=== PATIENT | male | born 1975 | race Caucasian/White ===

== ENCOUNTER 2020-07-25 09:18 | Outpatient (REF) | payer OTHER, SELFPAY ==
[2020-07-25 11:37] LABS: Estimated Average Glucose 123 mg/dL; Hemoglobin A1c % 5.9 %
[2020-07-25 11:49] LABS: Alanine Aminotransferase 34 U/L (0-40); Albumin Level 4.3 g/dL (3.5-5.0); Alkaline Phosphatase 50 U/L (39-117); Anion Gap 11 (12-20); Aspartate Amino Transferase 21 U/L (5-37); Bilirubin Total 0.4 mg/dL (0.0-1.0); Blood Urea Nitrogen 14 mg/dL (9-16); Calcium 8.9 mg/dL (8.4-10.2); Carbon Dioxide 30 mmol/L (22-29); Chloride 103 mmol/L (96-108); Cholesterol 181 mg/dL; Estimated Glomerular Filt Rate > 60; Glucose Fasting 130 mg/dL (60-99); HDL Cholesterol 36 mg/dL; LDL Cholesterol Calculated 115 mg/dl; Potassium 5.1 mmol/l (3.3-5.1); Sodium 139 mmol/L (135-145); Total Protein 6.8 g/dL (6.5-8.0); Triglycerides 154 mg/dL
[2020-07-25 11:51] LABS: Creatinine Urine 118.63 mg/dL; Microalbum/Creatinine Ratio Ur 5.9 ug/mg cr
== END 2020-07-25 09:19 | disposition home or self-care (01) ==
LOC: HO.MANLDS 09:18
PROVIDERS: Visit Provider Physician Assistant
DX: E11.9 Type 2 diabetes mellitus without complications (principal); I10 Essential (primary) hypertension
CPT/HCPCS: 80053; 80061; 82043; 83036

== ENCOUNTER 2020-10-19 09:07 | Outpatient (REF) | payer OTHER, SELFPAY ==
[2020-10-19 12:03] LABS: Estimated Average Glucose 128 mg/dL; Hemoglobin A1c % 6.1 %
[2020-10-19 12:30] LABS: Alanine Aminotransferase 44 U/L (0-40); Albumin Level 4.2 g/dL (3.5-5.0); Alkaline Phosphatase 49 U/L (39-117); Anion Gap 12 (12-20); Aspartate Amino Transferase 26 U/L (5-37); Bilirubin Total 0.7 mg/dL (0.0-1.0); Blood Urea Nitrogen 18 mg/dL (9-16); Calcium 8.9 mg/dL (8.4-10.2); Carbon Dioxide 29 mmol/L (22-29); Chloride 103 mmol/L (96-108); Cholesterol 194 mg/dL; Estimated Glomerular Filt Rate > 60; Glucose Fasting 142 mg/dL (60-99); HDL Cholesterol 38 mg/dL; LDL Cholesterol Calculated 118 mg/dl; Potassium 4.5 mmol/L (3.3-5.1); Sodium 139 mmol/L (135-145); Total Protein 6.7 g/dL (6.5-8.0); Triglycerides 191 mg/dL
[2020-10-19 13:46] LABS: Creatinine Urine 125.85 mg/dL; Microalbum/Creatinine Ratio Ur 6.3 ug/mg cr
== END 2020-10-19 09:08 | disposition home or self-care (01) ==
LOC: HO.MANLR 09:07
PROVIDERS: PCP Internal Medicine; Visit Provider Physician Assistant
DX: E11.9 Type 2 diabetes mellitus without complications (principal)
CPT/HCPCS: 36415; 80053; 80061; 82043; 83036

== ENCOUNTER 2021-01-23 10:17 | Outpatient (REF) | payer OTHER, SELFPAY ==
[2021-01-23 13:14] LABS: Estimated Average Glucose 131 mg/dL; Hemoglobin A1c % 6.2 %
== END 2021-01-23 10:18 | disposition home or self-care (01) ==
LOC: HO.MANLDS 10:17
PROVIDERS: PCP Internal Medicine; Visit Provider Physician Assistant
DX: E11.9 Type 2 diabetes mellitus without complications (principal)
CPT/HCPCS: 36415; 83036

== ENCOUNTER 2021-05-07 09:14 | Outpatient (REF) | payer OTHER, SELFPAY ==
[2021-05-07 11:31] LABS: Estimated Average Glucose 131 mg/dL; Hemoglobin A1c % 6.2 %
== END 2021-05-07 09:15 | disposition home or self-care (01) ==
LOC: HO.MANLDS 09:14
PROVIDERS: PCP Physician Assistant; Visit Provider Physician Assistant
DX: E11.9 Type 2 diabetes mellitus without complications (principal)
CPT/HCPCS: 36415; 83036

== ENCOUNTER 2021-10-04 10:01 | Outpatient (REF) | payer OTHER, SELFPAY ==
[2021-10-04 11:28] LABS: Alanine Aminotransferase 53 U/L (0-40); Albumin Level 4.3 g/dL (3.5-5.0); Alkaline Phosphatase 52 U/L (39-117); Anion Gap 11 (12-20); Aspartate Amino Transferase 26 U/L (5-37); Bilirubin Total 0.6 mg/dL (0.0-1.0); Blood Urea Nitrogen 13 mg/dL (9-16); Calcium 9.8 mg/dL (8.4-10.2); Carbon Dioxide 29 mmol/L (22-29); Chloride 102 mmol/L (96-108); Cholesterol 196 mg/dL; Estimated Average Glucose 134 mg/dL; Estimated Glomerular Filt Rate > 60; Glucose Fasting 134 mg/dL (60-99); HDL Cholesterol 32 mg/dL; Hemoglobin A1c % 6.3 %; LDL Cholesterol Calculated 122 mg/dl; Potassium 4.7 mmol/L (3.3-5.1); Sodium 137 mmol/L (135-145); Total Protein 6.9 g/dL (6.5-8.0); Triglycerides 210 mg/dL
[2021-10-04 11:29] LABS: Creatinine Urine 130.65 mg/dL; Microalbum/Creatinine Ratio Ur 6.8 ug/mg cr
== END 2021-10-04 10:02 | disposition home or self-care (01) ==
LOC: HO.MANLDS 10:01
PROVIDERS: PCP Physician Assistant; Visit Provider Physician Assistant
DX: E11.9 Type 2 diabetes mellitus without complications (principal)
CPT/HCPCS: 36415; 80053; 80061; 82043; 83036

== ENCOUNTER 2022-02-26 10:10 | Outpatient (REF) | payer OTHER, SELFPAY ==
[2022-02-26 11:14] LABS: MANUAL DIFF FLAG NO
[2022-02-26 11:37] LABS: Estimated Average Glucose 126 mg/dL
[2022-02-26 11:39] LABS: Basophils Percent Auto 0.8 % (0-2); Eosinophils Absolute Auto 0.1 X10*3/uL (0.0-0.4); Eosinophils Percent Auto 2.6 % (0-4); Hemoglobin 14.9 g/dl (14.0-18.0); Imm Gran Abs Auto 0.02 X10*3/uL (0.00-0.03); Imm Gran Pct Auto 0.4 % (0.0-0.4); Lymphocytes Absolute Auto 2.1 X10*3/uL (1.2-4.9); Lymphocytes Percent Auto 38.7 % (20-40); Mean Corpuscular HGB Conc 33.9 g/dl (31.0-36.0); Mean Corpuscular Volume 94.4 fL (80.0-98.0); Mean Platelet Volume 9.8 fL (9.4-12.4); Monocytes Absolute Auto 0.4 X10*3/uL (0.1-1.2); Monocytes Percent Auto 7.9 % (2-11); Neutrophils Absolute Auto 2.6 x10*3/uL (2.0-8.3); Neutrophils Percent Auto 49.6 % (45-73); Platelet Count 268 X10*3/uL (160-400); Red Blood Count 4.66 X10*6/uL (4.60-5.80); Red Cell Distribution Width 12.1 % (11.0-16.0); White Blood Count 5.3 X10*3/uL (4.8-10.8)
[2022-02-26 12:12] LABS: Alanine Aminotransferase 43 U/L (0-40); Albumin Level 4.3 g/dL (3.5-5.0); Alkaline Phosphatase 53 U/L (39-117); Anion Gap 12 (12-20); Aspartate Amino Transferase 23 U/L (5-37); Bilirubin Total 0.6 mg/dL (0.0-1.0); Blood Urea Nitrogen 13 mg/dL (9-16); Carbon Dioxide 28 mmol/L (22-29); Chloride 106 mmol/L (96-108); Cholesterol 168 mg/dL; Estimated Glomerular Filt Rate > 60; Glucose Random 120 mg/dL (60-115); HDL Cholesterol 29 mg/dL; LDL Cholesterol Calculated 110 mg/dl; Sodium 141 mmol/L (135-145); Total Protein 6.8 g/dL (6.5-8.0); Triglycerides 146 mg/dL
== END 2022-02-26 10:11 | disposition home or self-care (01) ==
LOC: HO.MANLDS 10:10
PROVIDERS: Visit Provider Physician Assistant
DX: I10 Essential (primary) hypertension (principal)
CPT/HCPCS: 36415; 80053; 80061; 83036; 85025

== ENCOUNTER 2022-08-06 09:43 | Outpatient (REF) | payer OTHER, SELFPAY ==
[2022-08-06 11:11] LABS: MANUAL DIFF FLAG NO
[2022-08-06 11:24] LABS: Basophils Absolute Auto 0.1 X10*3/uL (0.0-0.2); Basophils Percent Auto 1.3 % (0-2); Eosinophils Absolute Auto 0.2 X10*3/uL (0.0-0.4); Eosinophils Percent Auto 3.9 % (0-4); Hematocrit 44.1 % (42.0-52.0); Hemoglobin 14.9 g/dl (14.0-18.0); Imm Gran Abs Auto 0.01 X10*3/uL (0.00-0.03); Imm Gran Pct Auto 0.2 % (0.0-0.4); Lymphocytes Absolute Auto 2.3 X10*3/uL (1.2-4.9); Lymphocytes Percent Auto 42.8 % (20-40); Mean Corpuscular HGB Conc 33.8 g/dl (31.0-36.0); Mean Corpuscular Hemoglobin 31.8 pg (27.0-33.0); Mean Corpuscular Volume 94.2 fL (80.0-98.0); Mean Platelet Volume 9.5 fL (9.4-12.4); Monocytes Absolute Auto 0.4 X10*3/uL (0.1-1.2); Monocytes Percent Auto 8.1 % (2-11); Neutrophils Absolute Auto 2.3 x10*3/uL (2.0-8.3); Neutrophils Percent Auto 43.7 % (45-73); Platelet Count 243 X10*3/uL (160-400); Red Blood Count 4.68 X10*6/uL (4.60-5.80); Red Cell Distribution Width 12.3 % (11.0-16.0); White Blood Count 5.3 X10*3/uL (4.8-10.8)
[2022-08-06 11:33] LABS: Estimated Average Glucose 137 mg/dL; Hemoglobin A1c % 6.4 %
[2022-08-06 11:52] LABS: Alanine Aminotransferase 50 U/L (0-40); Albumin Level 4.2 g/dL (3.5-5.0); Alkaline Phosphatase 48 U/L (39-117); Anion Gap 13 (12-20); Aspartate Amino Transferase 28 U/L (5-37); Bilirubin Total 0.5 mg/dL (0.0-1.0); Blood Urea Nitrogen 13 mg/dL (9-16); Calcium 9.1 mg/dL (8.4-10.2); Carbon Dioxide 26 mmol/L (22-29); Chloride 105 mmol/L (96-108); Cholesterol 208 mg/dL; Estimated Glomerular Filt Rate > 60; Glucose Random 147 mg/dL (60-115); HDL Cholesterol 36 mg/dL; LDL Cholesterol Calculated 129 mg/dl; Potassium 4.5 mmol/L (3.3-5.1); Sodium 139 mmol/L (135-145); Total Protein 6.5 g/dL (6.5-8.0); Triglycerides 215 mg/dL
== END 2022-08-06 09:44 | disposition home or self-care (01) ==
LOC: HO.MANLDS 09:43
PROVIDERS: Visit Provider Physician Assistant
DX: I10 Essential (primary) hypertension (principal)
CPT/HCPCS: 36415; 80053; 80061; 83036; 85025

== ENCOUNTER 2023-05-08 09:36 | Outpatient (REF) | payer OTHER, SELFPAY | END 2023-05-08 09:37 | disposition home or self-care (01) | LOC: HO.MANLDS 09:36 | PROVIDERS: Visit Provider Physician Assistant | DX: E11.9 Type 2 diabetes mellitus without complications (principal) | CPT/HCPCS: 36415; 80061; 83036 ==

== ENCOUNTER 2024-05-24 10:24 | Outpatient (REF) | payer OTHER, SELFPAY ==
[2024-05-24 13:11] LABS: MANUAL DIFF FLAG NO
[2024-05-24 13:38] LABS: Basophils Absolute Auto 0.1 X10*3/uL (0.0-0.2); Basophils Percent Auto 1.2 % (0-2); Eosinophils Absolute Auto 0.2 X10*3/uL (0.0-0.4); Eosinophils Percent Auto 3.3 % (0-4); Hematocrit 43.2 % (42.0-52.0); Hemoglobin 14.9 g/dl (14.0-18.0); Imm Gran Abs Auto 0.02 X10*3/uL (0.00-0.03); Imm Gran Pct Auto 0.4 % (0.0-0.4); Lymphocytes Absolute Auto 1.9 X10*3/uL (1.2-4.9); Lymphocytes Percent Auto 38.2 % (20-40); Mean Corpuscular HGB Conc 34.5 g/dl (31.0-36.0); Mean Corpuscular Hemoglobin 32.5 pg (27.0-33.0); Mean Corpuscular Volume 94.1 fL (80.0-98.0); Mean Platelet Volume 9.5 fL (9.4-12.4); Monocytes Absolute Auto 0.4 X10*3/uL (0.1-1.2); Monocytes Percent Auto 8.9 % (2-11); Neutrophils Absolute Auto 2.4 x10*3/uL (2.0-8.3); Platelet Count 245 X10*3/uL (160-400); Red Blood Count 4.59 X10*6/uL (4.60-5.80); White Blood Count 4.9 X10*3/uL (4.8-10.8)
[2024-05-24 13:59] LABS: Estimated Average Glucose 128 mg/dL; Hemoglobin A1C 187.1853 umol/L; Hemoglobin A1c % 6.1 % (<6.0); Total Hemoglobin (HGBA1C) 4367.5916 umol/L
== END 2024-05-24 10:25 | disposition home or self-care (01) ==
LOC: HO.MANLDS 10:24
PROVIDERS: Visit Provider Physician Assistant
DX: E11.9 Type 2 diabetes mellitus without complications (principal)
CPT/HCPCS: 36415; 83036; 85025

== ENCOUNTER 2025-04-24 09:42 | Outpatient (REF) | payer OTHER, SELFPAY ==
--- OUTSIDE RECORDS SUMMARY | 2025-04-24 11:30 | XMS_ITS | Encounter Summary ---
Author Organization [facility] Address [address] [address] Phone Care Team Providers Care Blender Helper Name Role Phone Yair Monreal DO Unavailable Fritz Avalos DO Unavailable Keya Chaidez PLATFORM SUPERVISOR Unavailable [phone] Daily Matamoros PA-C Unavailable [phone] Robyn Godoy MD Unavailable [phone] Yashira Snow PLATFORM SUPERVISOR Unavailable Yair Monreal DO Primary Care Provider Reason for Referral * MRI/CAT Scan - Closed Specialty Diagnoses / Procedures Referred By Contac t Referred To Contact Radiology Diagnoses Lumbosacral plexopathy Procedures MRI Pelvis (GI/) Omega Oneal MD Phone: tel: fax: [email or web address] Referral ID Status Reason Start Date Expiration Date Visits Re quested Visits Authorized [id number] Closed 05/26/2019 07/25/2019 1 1 Encounter Details Date Type Department Care Team (Latest Contact Info) Description 05/26/2019 Transcribe Orders [facility] Department [address] [place] [address] Omega Oneal MD [address] [place] [address], [address] [place] [address] [email or web address] Lumbosacral plexopathy (Primary Dx) Social History Tobacco Use Types Packs/Day Years Used Date Smoking Tobacco: Never Smokeless Tobacco: Never Alcohol Use Standard Drinks/Week Comments Yes 0 (1 standard drink = 0.6 oz pur e alcohol) rare Sex and Gender Information Value Date Recorded Sex Assigned at Not on file Legal Sex Male 9:31 PM EDT Gender Identity Not on file Sexual Orientation Not on file documented as of this encounter Plan of Treatment Not on file documented as of this encounter Results * MRI PELVIS WITH AND WITHOUT CONTRAST (06/16/2019 10:22 AM EST) Anatomical Region Laterality Modality Pelvis Magnetic Resonan ce 06/16/2019 10:5 1 AM EST Impressions 06/16/2019 10:59 AM EST No sacral, sacral plexus mass or pelvic mass identified to clearly account for the left lower extremity muscle loss. [id number] Narrative 06/16/2019 10:59 AM EST HISTORY: Unexplained lumbosacral plexus apathy. Muscle wasting left lower extremity. COMPARISON: No prior imaging of the region. TECHNIQUE: Axial T1, T1 fat sat, and STIR, and coronal T1, T1 fat sat and T2 fat sat sequences obtained. Postcontrast axial and coronal T1 fat-saturated sequences then obtained. Study is significantly limited due to body habitus and inhomogeneous fat saturation as well as respiratory artifact. FINDINGS: No sacral or pelvic masses are identified. No free fluid or fluid collections. No stones are clearly worrisome enhancement are seen. Lumbar spine was previously evaluated on an outside dedicated MRI study. No worrisome marrow signal changes appreciated in the [id number]. Incidental cyst suggested in the medial lip of the left kidney. Procedure Note Nan Evans MD - 06/16/2019 HISTORY: Unexplained lumbosacral plexus apathy. Muscle wasting left lowerextremity. COMPARISON: No prior imaging of the region. TECHNIQUE: Axial T1, T1 fat sat, and STIR, and coronal T1, T1 fat sat andT2 fat sat sequences obtained. Postcontrast axial and coronal [id number] sequences then obtained. Study is significantly limited dueto body habitus and inhomogeneous fat saturation as well as respiratoryartifact. FINDINGS: No sacral or pelvic masses are identified. No free fluid or fluidcollections. No stones are clearly worrisome enhancement are seen. Lumbarspine was previously evaluated on an outside dedicated MRI study. Noworrisome marrow signal changes appreciated in the [id number].Incidental cyst suggested in the medial lip of the left kidney. IMPRESSION: No sacral, sacral plexus mass or pelvic mass identified to clearly accountfor the left lower extremity muscle loss. [id number] Omega Oneal MD IMG MR PELVIS Final Result documented in this encounter Visit Diagnoses Diagnosis Lumbosacral plexopathy- Primary Lumbosacral plexus lesions Lumbosacral plexopathy Lumbosacral plexus lesions documented in this encounter Care Teams Blender Helper Relationship Specialty Start Date End Date Yair Monreal DO PCP - General Internal Medicine 06/02/17 Yair Monreal DO Historical LMR Provider 05/18/17 Fritz Avalos DO [address] [place] [address] Orth[facility] Medicine, [place] [address] Historical LMR Provider 05/18/17 Keya Chaidez NP [address] [place] [address] [email or web address] Historical LMR Provider 05/18/17 2 Daily Matamoros PA-C [address] [place] [address] [place] [address] [email or web address] Historical LMR Provider 05/18/17 08/10/21 Robyn Godoy MD [address] [place] [address] [facility], [place] [address] [email or web address] Historical LMR Provider 05/18/17 Yashira Snow NP [address] [place] [address] Historical LMR Provider 05/18/17 2 documented as of this encounter Additional Source Comments The information contained in this document represents components of the legal health record. It is not the complete legal health record.[facility]
--- OUTSIDE RECORDS SUMMARY | 2025-04-24 11:30 | XMS_ITS | Clinical Summary ---
Author Organization [facility] Address [address] [address] Phone Care Team Providers Care Health Promotion Educator Name Role Phone Yair Monreal DO Unavailable Fritz Avalos DO Unavailable [phone] Robyn Godoy MD Unavailable [phone] Yair Monreal DO Primary Care Provider [phone] Allergies Active Allergy Reactions Criticality Noted Date Comments Gudreep Inhibitors Cough Cefadroxil GI Upset,Anaphylaxis High Medications aspirin 81 MG EC tablet 1 tablet daily Activ e losartan (COZAAR) 50 MG tablet Take 50 mg by mouth daily. Active metFORMIN (GLUCOPHAGE) 500 MG tablet Take 1 tablet twice a day by oral route. Active omeprazole (PRILOSEC) 20 MG capsule TAKE ONE CAPSULE BY MOUTH TWICE A DAY USE WHILE ON DICLOFENAC Active blood-glucose meter kit use as directed Acti ve blood sugar diagnostic (FREESTYLE LITE STRIPS [facility]) use 1 per day with meter Active multivit with minerals/lutein (MULTIVITAMIN 50 PLUS ORAL) multivitamin Act deisy EPINEPHrine 0.3 mg/0.3 mL auto-injector Inject 0.3 mL (0.3 mg total) into the muscle as needed for anaphylaxis. 2 each 2 Active albuterol 90 mcg/actuation inhaler Inhale 2 puffs into the lungs every 6 (six) hours as needed. 8.5 g 2 Active Active Problems Problem Noted Date Diagnosed Date Cervical radicular pain 12/02/2021 Allergic reaction 12/02/2021 Insomnia 11/13/2021 Degeneration of lumbar intervertebral disc 10/09 Type 2 diabetes mellitus 01/12/2018 Assessment & Plan (12/02/2021 5:49 PM EDT): Started on insulin sliding scale. Holding metformin. Monitor blood sugars as steroids have been administered. Essential hypertension 01/11/2018 Assessment & Plan (12/02/2021 5:49 PM EDT): Holding antihypertensive medications at this time. Gastroesophageal reflux disease 01/11/2018 Assessment & Plan (12/02/2021 5:49 PM EDT): Continue with omeprazole daily. Obesity 01/08/2018 Resolved Problems Problem Noted Date Diagnosed Date Resolved Date Anaphylactic shock 12/02/2021 2 Assessment & Plan (12/02/2021 6:01 PM EDT): Will admit to the critical care unit. Epinephrine drip initiated. Will monitor closely and if not weaning off of the epinephrine drip within the first hour or so, may need more central IV access. Patient received a dose of methylprednisolone in the emergency department. Will not continue steroids for now. We will continue H1 and H2 joni scheduled. We will continue cardiac monitoring. We will monitor hemodynamics. If remaining hypotensive, will consider arterial line. I have asked for tryptase to be sent in the emergency department. We will repeat labs in the morning. Differential diagnosis includes mast cell activation syndrome for cholinergic urticaria/stress-induced urticaria. Left shoulder pain 03/15/2018 2 Immunizations Immunization Administration Dates Next Due COVID-19 (Pre-05/25) Moderna Vaccine, mRNA, PF 09/10/2021,09/11/2020,08/13/2020 INFLUENZA, SPLIT VIRUS, TRIVALENT PF 05/16/2016 Family History Medical History Relation Comments Diabetes Father Gout Father Hypertension Father Relation Status Comments Father Social History Tobacco Use Types Packs/Day Years Used Date Smoking Tobacco: Never Smokeless Tobacco: Never Alcohol Use Standard Drinks/Week Comments Yes 0 (1 standard drink = 0.6 oz pur e alcohol) rare Education Answer Date Recorded Are you interested in more education? Not on oralia e 11/28/2022 Are you concerned about learning? Not on file 11/28/2022 No 11/28/2022 No 11/28/2022 Digital Access Answer Date Recorded No 12/26/2022 No 12/26/2022 Reliable internet access at home? Not on file 12/26/2022 Device with a working camera? Not on file Sex and Gender Information Value Date Recorded Sex Assigned at Not on file Legal Sex Male 9:31 PM EDT Gender Identity Not on file Sexual Orientation Not on file Last Filed Vital Signs Vital Sign Reading Time Taken Comments Blood Pressure 130/87 01/17/2022 12:12 PM EDT Pulse 82 01/17/2022 12:12 PM EDT Temperature 37.3 C (99.2 F) 01/17/2022 12:12 PM EDT Respiratory Rate 16 01/17/2022 12:12 PM EDT Oxygen Saturation 98% 01/17/2022 12:12 PM EDT Inhaled Oxygen Concentration - - Weight 131.1 kg (289 lb) 01/17/2022 12:12 PM EDT per pt Height 188 cm (6' 2 ) 12/02/2021 1:01 PM EDT Body Mass Index 37.11 12/02/2021 1:01 PM EDT Plan of Treatment Health Maintenance Due Date Last Done Comments Adult Td,Tdap Booster 1973 BLOOD PRESSURE 1973 HEMOGLOBIN A1C 1973 DEPRESSION SCREENING 1985 HEPATITIS C SCREENING 1991 HIV ONE-TIME SCREENING (18-6 5 YEARS) 1991 PNEUMOCOCCAL VACCINES (50+ years) (1 of 2 - PCV) 1992 COLOGUARD 2018 COLONOSCOPY 2018 COLORECTAL CANCER SCREENING 2018 FIT TEST 2018 FOBT 2018 SIGMOIDOSCOPY 2018 VIRTUAL COLONOSCOPY 2018 DIABETIC EYE EXAM 12/02/2021 CREATININE LEVEL 12/03/2022 12/03/2021, 12/02/2021 POTASSIUM LEVEL 12/03/2022 12/03/2021, 12/02/2021 ZOSTER VACCINES (1 of 2) 2023 INFLUENZA VACCINE (#1) 2025 05/16/2016 COVID-19 VACCINE (2024-2 6 season) 2025 09/10/2021, 09/11/2020, 08/13/2020 LIPID PANEL 04/12/2025 04/12/2024, 12/19/2010 SMOKING STATUS SCREENING (On ce After 26 Yrs) Completed 01/17/2022 HEPATITIS A VACCINES Aged Out No long er eligible based on patient's age to complete this topic HIB VACCINES Aged Out No longer eligi ble based on patient's age to complete this topic MENINGOCOCCAL VACCINES (ACWY) Aged Out No longer eligible based on patient's age to complete this topic MENINGOCOCCAL VACCINES (B) Aged Out N o longer eligible based on patient's age to complete this topic Medical Devices Not on file Procedures Procedure Name Priority Date/Time Associated Diagnosis Comments LIPID PANEL Routine 04/12/2024 11:09 AM EDT Pure hypercholesterolemia BASIC METABOLIC PANEL Routine 12/03/2021 5:12 AM EDT from Last 3 Months or Most Recently Relevant to Health Maintenance Results * (ABNORMAL) Lipid panel (04/12/2024 11:09 AM EDT) HDL 32 mg/dL [facility] Comment: Interpretation <40 mg/dL: Low HDL cholesterol (major risk factor for CHD) Greater than or equal to 60 mg/dL: High HDL cholesterol ( negative risk factor for CHD) HDL - cholesterol is affected by a number of factors, e.g. smoking, excerise, hormones, sex and age. CHOLESTEROL 181 0 - 240 mg/dL [facility] TRIGLYCERIDES 216(H) 30 - 160 mg/dL [facility] LDL 106 50 - 129 mg/dL [facility] Comment: LDL levels in terms of risk for coronary heart disease: <100 mg/dL: Optimal 100-129 mg/dL: Near or above optimal 130-159 mg/dL: Borderline high 160-189 mg/dL: High >190 mg/dL: Very High CARDIAC RISK RATIO 5.7(H) 3.4 - 5.0 C [facility] Blood 04/12/2024 11:0 9 AM EDT 04/12/2024 11:12 AM EDT us Anabell CRAWFORD LAB BLOOD ORDERABLES Final Result Performing Organization Address [facility] Co de Phone Number [address] [address] * (ABNORMAL) Basic metabolic panel (12/03/2021 5:12 AM EDT) SODIUM 140 133 - 146 mmol/L [facility] CHLORIDE 107 96 - 108 mmol/L [facility] POTASSIUM 4.7 3.3 - 5.1 mmol/L [facility] CO2 21 21 - 35 mmol/L [facility] BUN 17 6 - 19 mg/dL [facility] CREATININE 0.80 0.5 - 1.5 mg/dL [facility] GLUCOSE 207(H) 70 - 99 mg/dL [facility] CALCIUM 8.9 8.4 - 10.3 mg/dL [facility] EGFR 109 >59 mL/min/1.7 3m2 [facility] Comment:Estimated glomerular filtration rate calculated using the CKD-EPI refit equation. ANION GAP 17 10 - 20 mmol/L [facility] Blood 12/03/2021 5:12 AM EDT 12/03/2021 5:29 AM EDT us Devaugnh Guy PA-C, MS LAB BLOOD ORDERABLES Fi nal Result Performing Organization Address City/[facility]/ZIP Co de Phone Number [address] [address] from Last 3 Months or Most Recently Relevant to Health Maintenance Insurance [facility] HMO [id number] [place] [address] [facility]MO [facility] [id number] [place] [id number] [place] [address] [facility] Advance Directives For more information, please contact: [phone] (9AM - 5PM [place], Thursday-Thursday) Documents on File Type Date Recorded Patient Pantry Chef Expl anation Healthcare Proxy 12/04/2021 10:38 AM * Full Code (Latest Code Status on File) Date Activated Date Inactivated Comments 12/02/2021 6:43 PM Question Answer Comments Code Status Confirmed With: Patient Care Teams Health Promotion Educator Relationship Specialty Start Date End Date Yair Monreal DO PCP - General Internal Medicine 06/02/17 Yair Monreal DO Historical LMR Provider 05/18/17 Fritz Avalos DO 4 [facility]ics & Sports Medicine, [place] [address] Historical LMR Provider 05/18/17 Robyn Godoy MD [address] [place] [address] Orthopedics & Sports Medicine, [place] [address] Historical LMR Provider 05/18/17 Additional Source Comments The information contained in this document represents components of the legal health record. It is not the complete legal health record.[facility]
--- OUTSIDE RECORDS SUMMARY | 2025-04-24 11:30 | XMS_ITS | Encounter Summary ---
Author Organization [facility] Address [address] [place] [address] Phone Care Team Providers Care Hospital Director Name Role Phone Jocelin Yair Jauregui DO Unavailable Fritz Avalos DO Unavailable Keya Chaidez EMB[employer] SYSTEMS SOFTWARE ENGINEER Unavailable [phone] Daily Matamoros PA-C Unavailable [phone] Robyn Godoy MD Unavailable [phone] Yashira Snow EMBEDDED SYSTEMS SOFTWARE ENGINEER Unavailable Yair Monreal DO Primary Care Provider [phone] Encounter Details Date Type Department Care Team (Latest Contact Info) Description 07/18/2019 Transcribe Orders Virtual Department [address] [place] [address] Kira Pleitez PA-C [address] Juan [address]. [address] [place] [address] Right foot pain (Primary Dx) Social History Tobacco Use Types [...] documented as of this encounter Results * XR FOOT 3 OR MORE VIEWS (RIGHT) (07/22/2019 10:11 AM EST) Anatomical Region Laterality Modality Foot Right Radiographic Carmen ging 07/22/2019 11:2 2 AM EST Impressions 07/22/2019 11:29 AM EST Mild degenerative changes, without fracture or malalignment. Minimal soft tissue swelling laterally. POS - [id number] Narrative 07/22/2019 11:29 AM EST EXAM: XR FOOT 3 OR MORE VIEWS (RIGHT) HISTORY: Pain for months. No recent trauma. TECHNIQUE: RIGHT foot 3 views. COMPARISON: None. FINDINGS: There is no acute fracture or dislocation. Normal alignment. Mild first MTP joint space narrowing present. Small bony exostosis seen at the lateral aspect distal second metatarsal with benign features. No bone destruction. There is soft tissue swelling laterally, superficial to the head of the fifth metatarsal, without underlying bone abnormality. There is minimal plantar calcaneal spurring. Procedure Note Michelle Cabrla MD - 07/22/2019 EXAM: XR FOOT 3 OR MORE VIEWS (RIGHT) HISTORY: Pain for months. No recent trauma. TECHNIQUE: RIGHT foot 3 views. COMPARISON: None. FINDINGS: There is no acute fracture or dislocation. Normal alignment. Mild firstMTP joint space narrowing present. Small bony exostosis seen at thelateral aspect distal second metatarsal with benign features. No bonedestruction. There is soft tissue swelling laterally, superficial to thehead of the fifth metatarsal, without underlying bone abnormality. Thereis minimal plantar calcaneal spurring. IMPRESSION: Mild degenerative changes, without fracture or malalignment. Minimal soft tissue swelling laterally. POS - [id number] Kira Pricilla DURAN IMG XR LOWER EXTREMITY Final Result documented in this encounter Visit Diagnoses Diagnosis Right foot pain- Primary Pain in soft tissues of limb Right foot pain Pain in soft tissues of limb documented in this encounter Care Teams Hospital Director Relationship Specialty Start Date End Date Yair Monreal DO PCP - General Internal Medicine 06/02/17 Yair Monreal DO Historical LMR Provider 05/18/17 Fritz Avalos DO [address] [place] [address] Orthopedics & Sports Medicine, [place] [address] Historical LMR Provider 05/18/17 Keya Chaidez NP [address] [place] [address] [email or web address] Historical LMR Provider 05/18/17 2 Daily Matamoros PA-C [address] [place] [address] Orthopedics & Sports [facility], [place] [address] Historical LMR Provider 05/18/17 08/10/21 Robyn Godoy MD [address] [place] [address] Orthopedics & Sports [facility], [place] [address] Historical LMR Provider 05/18/17 Yashira Snow NP [address] [place] [address] Historical LMR Provider 05/18/17 2 documented as of this encounter Additional Source Comments The information contained in this document represents components of the legal health record. It is not the complete legal health record.[facility]
--- OUTSIDE RECORDS SUMMARY | 2025-04-24 11:30 | XMS_ITS | Encounter Summary ---
Author Organization [facility] Address [address] [place] [address] Phone Care Team Providers Care Agriculture Internship Name Role Phone Jocelin Yair Jauregui DO Unavailable Fritz Avalos DO Unavailable Keya Chaidez PRODUCTION CONTROL TECHNOLOGIST Unavailable [phone] Daily MatamorosC Unavailable [phone] Robyn Godoy MD Unavailable [phone] Yashira Snow PRODUCTION CONTROL TECHNOLOGIST Unavailable Yair Monreal DO Primary Care Provider [phone] Encounter Details Date Type Department Care Team (Late st Contact Info) Description 05/11/2020 Procedure Pass [address] [place] [address] Social History Tobacco Use Types Packs/Day Years [...] on file documented as of this encounter Last Filed Vital Signs Vital Sign Reading Time Taken Comments Blood Pressure - - Pulse - - Temperature - - Respiratory Rate - - Oxygen Saturation - - Inhaled Oxygen Concentration - - Weight 134.7 kg (297 lb) 05/14/2020 5:47 PM EDT Height 188 cm (6' 2 ) 05/14/2020 5:47 PM EDT Body Mass Index 38.13 05/14/2020 5:47 PM EDT documented in this encounter Plan of Treatment Not on file documented as of this encounter Visit Diagnoses Not on filedocumented in this encounter Care Teams Agriculture Internship Relationship Specialty Start Date End Date Yair Monreal DO PCP - General Internal Medicine 06/02/17 Yair Monreal DO Historical LMR Provider 05/18/17 Fritz Avalos DO [address] [place] [address], [place], [place] [id number] Historical LMR Provider 05/18/17 Keya Chaidez PRODUCTION CONTROL TECHNOLOGIST [address] [place] [address] [email or web address] Historical LMR Provider 05/18/17 2 Daily Matamoros PA-C 4 [facility], [place], [place] [id number] Historical LMR Provider 05/18/17 08/10/21 Robyn Godoy MD [address] [place] [address] Orthopedics Sports [facility], [place], [place] [id number] Historical LMR Provider 05/18/17 Yashira Snow NP [address] [place] [address] Historical LMR Provider 05/18/17 2 documented as of this encounter Additional Source Comments The information contained in this document represents components of the legal health record. It is not the complete legal health record.[facility]
--- OUTSIDE RECORDS SUMMARY | 2025-04-24 11:30 | XMS_ITS | Encounter Summary ---
Author Organization [facility] Address [address] [address] Phone Care Team Providers Care Arc Air Operator Name Role Phone Yair Monreal DO Unavailable Fritz Avalos DO Unavailable Keya Chaidez WEEKEND RECEPTIONIST Unavailable Daily MatamorosC Unavailable Robyn Godoy MD Unavailable Yashira Snow WEEKEND RECEPTIONIST Unavailable Yair Monreal DO Primary Care Provider Reason for Referral * MRI/CAT Scan - Closed Specialty Diagnoses / Procedures Referred By Contac t Referred To Contact Radiology Diagnoses Weakness Numbness Procedures MRI Lumbar Spine Omega Oneal MD Phone: tel: fax: [email or web address] Referral ID Status Reason Start Date Expiration Date Visits Re quested Visits Authorized [id number] Closed 05/11/2020 11/07/2020 1 1 Encounter Details Date Type Department Care Team (Latest Contact Info) Description 05/11/2020 Transcribe Orders [facility] Department [address] [place] [phone] Omega Oneal MD [address] [place] [address], [address] [place] [address] [email or web address] Weakness (Primary Dx); Numbness Social History Tobacco Use Types Packs/Day Years [...] as of this encounter Results * MRI LUMBAR SPINE (NEURO) WITH AND WITHOUT CONTRAST (05/18/2020 2:54 PM EDT) Anatomical Region Laterality Modality L-spine Magnetic Resonan ce 05/18/2020 3:26 PM EDT Impressions 05/18/2020 3:43 PM EDT 1. No focal disc protrusion at any level. 2. Mild retrolisthesis of L1 but without significant stenosis. 3. Mild anterolisthesis of L4 eccentric broad disc bulge but the subluxation combines with short pedicles and prominent posterior hypertrophy to produce moderately severe central and bilateral foraminal stenosis Most of these findings were described on the report from 2019 such that I doubt there has been a significant change although that report described stenosis at L4-5 as only mild believe it is more severe than that. POS [id number] Narrative 05/18/2020 3:43 PM EDT TECHNIQUE: 1.5 Zoey scanner. Imaging without and with IV contrast. Compared to the typed report previous MRI from [place] dated 02/22/2019. No images available. FINDINGS: About 4 mm of retrolisthesis of L1 and 5 mm of anterolisthesis of L5, both described as mild previously. The other vertebral bodies are well-aligned. No worrisome marrow changes. No abnormal enhancement at any level. Normal conus position and appearance. T11-12: Severe disc narrowing and minor broad disc bulge. No focal protrusion or stenosis. T12-L1: Disc desiccation and minor narrowing. No bulge, protrusion or stenosis. L1-2: Broad disc bulge slightly eccentric to the right without focal protrusion, eccentrically to by the retrolisthesis of L1. No significant stenosis. L2-3: Very minimal broad disc bulge. No focal protrusion. Short pedicles and moderate facet hypertrophy yet no significant stenosis. L3-4: Moderate broad disc bulge but no focal protrusion. Short pedicles and moderate facet hypertrophy but no significant central or foraminal stenosis. L4-5: The anterolisthesis of L4 uncovers the posterior disc margin and there is a broad disc bulge without focal protrusion. Combined spondylolisthesis, short pedicles and prominent posterior hypertrophy result in moderately severe central and bilateral foraminal stenosis worse on the left. Given the lack of widening of the central canal it is unlikely that there is associated spondylolysis. L5-S1: Mild broad disc bulge slightly left-eccentric but no focal protrusion. No significant stenosis. Procedure Note Juan Alberto Muñoz MD - 05/18/2020 TECHNIQUE: 1.5 Zoey scanner. Imaging without and with IV contrast. Compared to the typed report previous MRI from [place] date02/22/2019. No images available. FINDINGS: About 4 mm of retrolisthesis of L1 and 5 mm of anterolisthesis of L5, bothdescribed as mild previously. The other vertebral bodies arewell-aligned. No worrisome marrow changes. No abnormal enhancement at any level. Normal conus position and appearance. T11-12: Severe disc narrowing and minor broad disc bulge. No focalprotrusion or stenosis. T12-L1: Disc desiccation and minor narrowing. No bulge, protrusion orstenosis. L1-2: Broad disc bulge slightly eccentric to the right without focalprotrusion, eccentrically to by the retrolisthesis of L1. No significantstenosis. L2-3: Very minimal broad disc bulge. No focal protrusion. Short pediclesand moderate facet hypertrophy yet no significant stenosis. L3-4: Moderate broad disc bulge but no focal protrusion. Short pediclesand moderate facet hypertrophy but no significant central or foraminalstenosis. L4-5: The anterolisthesis of L4 uncovers the posterior disc margin andthere is a broad disc bulge without focal protrusion. Combinedspondylolisthesis, short pedicles and prominent posterior hypertrophyresult in moderately severe central and bilateral foraminal stenosis worseon the left. Given the lack of widening of the central canal it isunlikely that there is associated spondylolysis. L5-S1: Mild broad disc bulge slightly left-eccentric but no focalprotrusion. No significant stenosis. IMPRESSION: 1. No focal disc protrusion at any level. 2. Mild retrolisthesis of L1 but without significant stenosis. 3. Mild anterolisthesis of L4 eccentric broad disc bulge but thesubluxation combines with short pedicles and prominent posteriorhypertrophy to produce moderately severe central and bilateral foraminalstenosis Most of these findings were described on the report from 2019 such that Idoubt there has been a significant change although that report describedstenosis at L4-5 as only mild believe it is more severe than that. POS [id number] Omega Oneal MD IMG MR XSPECIALTY Final Resu lt documented in this encounter Visit Diagnoses Diagnosis Weakness- Primary Other malaise and fatigue Numbness Disturbance of skin sensation Weakness Other malaise and fatigue Numbness Disturbance of skin sensation documented in this encounter Care Teams Arc Air Operator Relationship Specialty Start Date End Date Yair Monreal DO PCP - General Internal Medicine 06/02/17 Yair Monreal DO Historical LMR Provider 05/18/17 Fritz Avalos DO [address] [place] [address] Orthopedics & Sports Medicine, [place] [address] Historical LMR Provider 05/18/17 Keya Chaidez NP [address] [place] [address] [email or web address] Historical LMR Provider 05/18/17 2 Daily Matamoros PA-C [address] [place] [address] Orthopedics & Sports Medicine, [place] [address] [email or web address] Historical LMR Provider 05/18/17 08/10/21 Robyn Godoy MD [address] [place] [address] Orthopedics Sports [facility], [place] [address] [email or web address] Historical LMR Provider 05/18/17 Yashira Snow NP [address] [place] [id number] Historical LMR Provider 05/18/17 2 documented as of this encounter Additional Source Comments The information contained in this document represents components of the legal health record. It is not the complete legal health record.[facility]
--- OUTSIDE RECORDS SUMMARY | 2025-04-24 11:30 | XMS_ITS | Encounter Summary ---
Author Organization Loc[facility] Address [address] [place] [address] Phone Care Team Providers Care Plant Inspector Name Role Phone Yair Monreal DO Unavailable Fritz Avalos DO Unavailable Keya Chaidez TRAFFIC CONTROL SUPERVISOR Unavailable [phone] Daily Matamoros PA-C Unavailable Robyn Godoy MD Unavailable [phone] Yashira Snow TRAFFIC CONTROL SUPERVISOR Unavailable [phone] Yair Monreal DO Primary Care Provider [phone] Encounter Details Date Type Department Care Team (Late st Contact Info) Description 05/26/2019 Procedure Pass [address] [place] [address] Social History Tobacco Use Types Packs/Day Years [...] on filedocumented in this encounter Care Teams Plant Inspector Relationship Specialty Start Date End Date Yair Monreal DO PCP - General Internal Medicine 06/02/17 Yair Monreal DO Historical LMR Provider 05/18/17 Fritz Avalos DO [address] [place] [address] Orthopedics & [facility], [place] [address] Historical LMR Provider 05/18/17 Keya Chaidez NP [address] [place] [phone] [email or web address] Historical LMR Provider 05/18/17 2 Daily Matamoros PA-C [address] [place] [address] Orthopedics [facility], [place] [address] Historical LMR Provider 05/18/17 08/10/21 Robyn Godoy MD [address] [place] [address] Orth[facility], [place] [address] Historical LMR Provider 05/18/17 Yashira Snow NP [address] [place] [address] Historical LMR Provider 05/18/17 2 documented as of this encounter Additional Source Comments The information contained in this document represents components of the legal health record. It is not the complete legal health record.[facility]
--- OUTSIDE RECORDS SUMMARY | 2025-04-24 11:30 | XMS_ITS | Encounter Summary ---
Author Organization [facility] Address [address] [place] [phone] Phone Care Team Providers Care Maritime Guard Name Role Phone Jocelin Yair Jauregui DO Unavailable Fritz Avalos DO Unavailable Keya Chaidez UNDER SEAL OPERATOR Unavailable [phone] Daily Matamoros PA-C Unavailable Robyn Godoy MD Unavailable [phone] Yashira Snow UNDER SEAL OPERATOR Unavailable Yair Monreal DO Primary Care Provider [phone] Encounter Details Date Type Department Care Team (Latest Contact Info) Description 05/26/2019 Transcribe Orders [facility] [address] [place] [address] [phone] Omega Oneal MD [address] [place] [address], [address] [place], [place] [phone] [email or web address] Weakness (Primary Dx); Neuropathy Social History Tobacco Use Types Packs/Day Years [...] documented as of this encounter Results * Anti-Neutrophil Cytoplasmic Antibody (ANCA) (05/26/2019 9:51 AM EDT) C-ANCA Negative Negative [facility] P-ANCA Negative Negative [facility] Comment: (NOTE) Negative for cANCA and pANCA patterns by immunofluorescence. ADDITIONAL INFORMATION This test was developed and its performance characteristics determined by [facility] in a manner consistent with CLIA requirements. This test has not been cleared or approved by the U.S. Food and Drug Administration. Blood 05/26/2019 9:51 AM EDT 05/26/2019 9:59 AM EDT us Omega Oneal MD LAB BLOOD ORDERABLES Final R esult Performing Organization Address City/[facility]/ZIP Co de Phone Number [facility] [address] [place] [address] * Vitamin B12 (05/26/2019 9:51 AM EDT) VITAMIN B12 755 232 - 1,245 pg/mL [facility] Blood 05/26/2019 9:51 AM EDT 05/26/2019 9:59 AM EDT us Omega Oneal MD LAB BLOOD ORDERABLES Final R esult Performing Organization Address City/[facility]/ZIP Co de Phone Number [address] [address] * Ceruloplasmin (05/26/2019 9:51 AM EDT) CERULOPLASMIN 28 20 - 60 mg/dL [facility] Blood 05/26/2019 9:51 AM EDT 05/26/2019 9:59 AM EDT us Omega Oneal MD LAB BLOOD ORDERABLES Final R esult [facility] [address] [place] [address] * Syphilis antibody screen (05/26/2019 9:51 AM EDT) RPR NON-REACTIV E NON-REACTI VE [facility] Blood 05/26/2019 9:51 AM EDT 05/26/2019 9:59 AM EDT us Omega Oneal MD LAB BLOOD ORDERABLES Final R esult Performing Organization Address City/[facility]/ZIP Co de Phone Number [facility] [address] [place] [address] * Lyme Western blot only (05/26/2019 9:51 AM EDT) Pathologist [facility] IGG Immunoblot Negative Negative [facility] [address] IGG BANDS (KDA) None kDa [facility] IGM Immunoblot Negative Negative [facility] [address] IGM BANDS (KDA) None kDa [facility] Interpretation - Lyme SEE NOTE [facility] Comment: (NOTE) Specific serologic response to B. burgdorferi infection is not detected, but cannot rule out early infection during which low or undetectable antibody levels to B. burgdorferi may be present. If clinically indicated, a new serum specimen should be submitted in 7-14 days. ADDITIONAL INFORMATION Per CDC criteria, the Lyme IgG Immunoblot is interpreted as positive if IgG-class antibodies are detected to >=5 B. burgdorferi proteins, and the Lyme IgM Immunoblot is interpreted as positive if IgM-class antibodies are detected to >=2 B. burgdorferi proteins. Immunoblot patterns not meeting these criteria should not be interpreted as positive. Epitopes from certain B. burgdorferi proteins (e.g., p41) are conserved across other bacteria, which may lead to the detection of IgM- and/or IgG-class antibodies on the Lyme disease immunoblots in patients without Lyme disease. Immunoblot should only be ordered on specimens that are positive or equivocal by a FDA-licensed Lyme disease antibody screening test (e.g., EIA). Results of the Lyme IgM immunoblot should not be considered in patients with >= 30 days of symptoms. Blood (Blood) 05/26/2019 9:5 1 AM EDT 05/26/2019 9:59 AM EDT Omega Oneal MD LAB BLOOD ORDERABLES Final R esult Performing Organization Address City/[facility] Co de Phone Number [facility] [address] [place] [address] * Lyme screen with reflex to Western blot, blood (05/26/2019 9:51 AM EDT) [facility] Lyme AB IgG Negative Negative [facility] Lyme AB IgM Negative Negative [facility] Blood 05/26/2019 9:51 AM EDT 05/26/2019 9:59 AM EDT us Omega Oneal MD LAB BLOOD ORDERABLES Final R esult Performing Organization Address [facility] Co de Phone Number [address] [address] * CPK (creatine kinase) (05/26/2019 9:51 AM EDT) [facility] CREATINE KINASE 191 35 - 232 U/L [facility] Blood 05/26/2019 9:51 AM EDT 05/26/2019 9:59 AM EDT Omega Oneal MD LAB BLOOD ORDERABLES Final R esult Performing Organization Address [facility] Co de Phone Number [address] [address] * TSH (05/26/2019 9:51 AM EDT) Pathologist [facility] TSH 1.34 0.27 - 4.20 uIU/mL [facility] Blood 05/26/2019 9:51 AM EDT 05/26/2019 9:59 AM EDT us Omega Oneal MD LAB BLOOD ORDERABLES Final R esult Performing Organization Address City/[facility]/ZIP Co de Phone Number [address] [address] * Antinuclear antibody (ONEAL) (05/26/2019 9:51 AM EDT) ONEAL SCREEN ON HEP 2 Negative Negative [facility] Blood 05/26/2019 9:51 AM EDT 05/26/2019 9:59 AM EDT us Omega Oneal MD LAB BLOOD ORDERABLES Final R esult Performing Organization Address City/[facility] Co de Phone Number [address] [address] documented in this encounter Visit Diagnoses Diagnosis Weakness- Primary Other malaise and fatigue Neuropathy Mononeuritis of unspecified site documented in this encounter Care Teams Maritime Guard Relationship Specialty Start Date End Date Yair Monreal DO PCP - General Internal Medicine 06/02/17 Yair Monreal DO Historical LMR Provider 05/18/17 Fritz Avalos DO [address] [place] [address] Orthopedics & Sports Medicine, [facility] [place] [address] Historical LMR Provider 05/18/17 Keya Chaidez NP [address] [place] [phone] [email or web address] Historical LMR Provider 05/18/17 2 Daily Matamoros PA-C [address] [place] [address] [facility], [place] [address] [email or web address] Historical LMR Provider 05/18/17 08/10/21 Robyn Godoy MD [address] [place] [address] [facility], [place] [address] [email or web address] Historical LMR Provider 05/18/17 Yashira Snow NP [address] [place] [address] Historical LMR Provider 05/18/17 2 documented as of this encounter Additional Source Comments The information contained in this document represents components of the legal health record. It is not the complete legal health record.[facility]
[2025-04-24 13:06] LABS: MANUAL DIFF FLAG NO
[2025-04-24 13:15] LABS: Hematocrit 41.1 % (42.0-52.0); Hemoglobin 14.8 g/dl (14.0-18.0); Imm Gran Abs Auto 0.01 X10*3/uL (0.00-0.03); Imm Gran Pct Auto 0.2 % (0.0-0.4); Lymphocytes Absolute Auto 1.8 X10*3/uL (1.2-4.9); Mean Corpuscular HGB Conc 36.0 g/dl (31.0-36.0); Mean Corpuscular Hemoglobin 33.9 pg (27.0-33.0); Mean Corpuscular Volume 94.1 fL (80.0-98.0); NRBC Abs Auto 0.000 X10*3/uL (0.0-0.012); NRBC Pct Auto 0.0 /100WBC (0.0-0.2); Platelet Count 266 X10*3/uL (160-400); Red Blood Count 4.37 X10*6/uL (4.60-5.80); White Blood Count 5.2 X10*3/uL (4.8-10.8)
[2025-04-24 13:27] LABS: Hemoglobin A1C 151.3290 umol/L; Total Hemoglobin (HGBA1C) 3914.8243 umol/L
[2025-04-24 13:54] LABS: Alanine Aminotransferase 57 U/L (0-40); Albumin Level 4.4 g/dL (3.5-5.0); Alkaline Phosphatase 46 U/L (39-117); Anion Gap 11 (12-20); Aspartate Amino Transferase 43 U/L (5-37); Blood Urea Nitrogen 13 mg/dL (9-16); Calcium 9.4 mg/dL (8.4-10.2); Carbon Dioxide 28 mmol/L (22-29); Chloride 106 mmol/L (96-108); Cholesterol 168 mg/dL (<200); Estimated Glomerular Filt Rate > 60; HDL Cholesterol 31 mg/dL (>40); Potassium 4.8 mmol/L (3.3-5.1); Sodium 140 mmol/L (135-145); Total Protein 6.9 g/dL (6.5-8.0); Triglycerides 150 mg/dL (<150)
== END 2025-04-24 09:43 | disposition home or self-care (01) ==
LOC: HO.MANLDS 09:42
PROVIDERS: Visit Provider Physician Assistant
DX: E78.2 Mixed hyperlipidemia (principal); E11.65 Type 2 diabetes mellitus with hyperglycemia
CPT/HCPCS: 36415; 80053; 80061; 83036; 85025